=== PATIENT | female | born 1990 | race African-American/Black ===

== ENCOUNTER → 2017-07-18 | Outpatient (CLI) | payer OTHER ==
[~2017-07-18] VITALS: Ht 162.6 cm; Wt 145.6 kg
[2017-07-18 14:48] VITALS: BP 126/70; PULSE 80
== END ==
LOC: EDBD → LIGHT 09:07
DX: E66.01 Morbid (severe) obesity due to excess calories (principal); Z68.43 Body mass index [BMI] 50.0-59.9, adult; Z71.3 Dietary counseling and surveillance; R73.01 Impaired fasting glucose; E78.5 Hyperlipidemia, unspecified

== ENCOUNTER → 2018-02-12 | Outpatient (CLI) | payer OTHER ==
[~2018-02-12] VITALS: Ht 162.6 cm; Wt 149.5 kg
[2018-02-12 14:10] VITALS: BP 110/64; PULSE 68
== END ==
LOC: SUN.DIA 08-01 07:53 → LIGHT 08-01 13:09
DX: E66.01 Morbid (severe) obesity due to excess calories (principal); Z68.43 Body mass index [BMI] 50.0-59.9, adult; Z71.3 Dietary counseling and surveillance; R73.01 Impaired fasting glucose; E78.5 Hyperlipidemia, unspecified
CPT/HCPCS: G0463

== ENCOUNTER 2018-03-14 09:23 | Inpatient (IN) | payer OTHER ==
[~2018-03-14] VITALS: Ht 165.1 cm; Wt 149.8 kg
[2018-03-28] VITALS (12 sets, daily range): BP systolic 134–156; BP diastolic 74–88; PULSE 80–100; TEMP 97.6–98.5
[2018-03-29] VITALS (7 sets, daily range): BP systolic 121–153; BP diastolic 65–80; PULSE 52–71; TEMP 97.6–98.6
[2018-03-30 04:29] VITALS: BP 135/63; PULSE 62; TEMP 97.8
[2018-03-30 08:41] VITALS: BP 134/68; PULSE 63; TEMP 98
[2018-03-30 12:08] VITALS: BP 135/70; PULSE 72; TEMP 98.4
== END 2018-03-30 13:35 | disposition home or self-care (01) | DRG 621 ==
LOC: INPTSU 03-28 06:54 → SURG 03-28 06:54
PROVIDERS: Surgery
PROC: 0DB64Z3 Excision of Stomach, Percutaneous Endoscopic Approach, Vertical (ICD-10-PCS; principal; 2018-03-28 09:30)
DX: E66.01 Morbid (severe) obesity due to excess calories (principal); Z68.43 Body mass index [BMI] 50.0-59.9, adult
CPT/HCPCS: A9284; J0330; J0360; J0690; J1100; J1170; J1650; J1885; J2405; J2704; J2710; J3010; J7120

== ENCOUNTER → 2018-03-19 | Outpatient (CLI) | payer OTHER | LOC: LIGHT 12:51 | DX: Z01.818 Encounter for other preprocedural examination (principal) ==

== ENCOUNTER 2018-04-07 14:05 | Observation (INO) | payer OTHER ==
[~2018-04-07] VITALS: Ht 165.1 cm; Wt 143.3 kg
[2018-04-07] MEDS ORDERED: ZOFRAN 4MG T4 MG/TAB PO (14:27)
[2018-04-07] MEDS ORDERED: PROTONIX 40MG T40 MG PO (14:28)
[2018-04-07] MEDS ORDERED: LEVAQUIN 5500 MG/TA1 PO (14:31)
[2018-04-07] MEDS ORDERED: NORCO 325 MG-7.1 TAB PO (14:32)
[2018-04-07 15:12] LABS: BASO % 0.3 % (0.0-2.0); EOS # 0.1 (0.0-0.7); EOS % 1.1 % (0-4.0); GRAN # 9.7 (1.4-6.5); GRAN % 75.9 % (42.2-75.2); HEMOGLOBIN 10.1 g/dl (12.5-16.0); LYMPH # 1.9 (1.2-3.4); LYMPH % 14.6 % (20.0-51.0); MEAN CELL VOLUME 68 fl (80.0-100.0); MEAN CORPUSCULAR HEMOGLOBIN 21 pg (27.0-31.0); MEAN CORPUSCULAR HGB CONC 31 g/dl (33.0-37.0); MEAN PLATELET VOLUME 9.8 fl (7.4-10.4); MONO % 7.7 % (1.7-9.3); PLATELET COUNT 563 K/mm3 (130-400); RED BLOOD COUNT 4.85 M/mm3 (4.10-5.30); REDCELL DISTRIBUTION WIDTH-CV 19.9 % (11.5-14.5)
[2018-04-07 15:15] LABS: HEMATOCRIT 33.1 % (37.0-47.0)
[2018-04-07 15:24] LABS: ALBUMIN 3.9 gm/dL (3.5-5.0); BILIRUBIN,TOTAL 0.5 mg/dL (0.0-1.0); C-REACTIVE PROTEIN 3.7 mg/dL (0.0-0.9); CALCIUM 9.4 mg/dL (8.4-10.2); CREATININE, serum 0.71 mg/dL (0.52-1.25); POTASSIUM 3.5 mmol/L (3.4-5.0); TOTAL PROTEIN 8.9 gm/dL (6.4-8.2)
[2018-04-07 15:44] LABS: COLLECTION METHOD CLEAN CATCH
[2018-04-07 15:55] LABS: MUCOUS Present /lpf; PH 5 (5-8); URINE APPEARANCE Cloudy; URINE BACTERIA None Seen /hpf; URINE BILIRUBIN Negative (NEGATIVE); URINE BLOOD Negative (NEGATIVE); URINE COLOR Yellow; URINE GLUCOSE Negative (NEGATIVE); URINE KETONE 2+ (NEGATIVE); URINE LEUKOCYTE ESTERASE 1+ (NEGATIVE); URINE NITRATE Negative (NEGATIVE); URINE PROTEIN(semi-quant) 1+ (NEGATIVE); URINE RBC 0-2 /hpf
[2018-04-07 19:55] VITALS: BP 143/72; PULSE 90; TEMP 97.8
[2018-04-07 23:25] VITALS: BP 128/70; PULSE 75; TEMP 98.4
[2018-04-08 03:22] VITALS: BP 120/72; PULSE 70; TEMP 98.1
[2018-04-08 07:45] VITALS: BP 128/69; PULSE 69; TEMP 98.5
[2018-04-08 08:00] LABS: BASO % 0.2 % (0.0-2.0); EOS # 0.2 (0.0-0.7); EOS % 1.5 % (0-4.0); GRAN # 7.1 (1.4-6.5); GRAN % 73.1 % (42.2-75.2); LYMPH # 1.7 (1.2-3.4); MEAN CELL VOLUME 69 fl (80.0-100.0); MEAN CORPUSCULAR HGB CONC 31 g/dl (33.0-37.0); MEAN PLATELET VOLUME 10.2 fl (7.4-10.4); MONO # 0.8 (0.1-0.6); MONO % 7.8 % (1.7-9.3); PLATELET COUNT 512 K/mm3 (130-400); RED BLOOD COUNT 4.39 M/mm3 (4.10-5.30); REDCELL DISTRIBUTION WIDTH-CV 19.6 % (11.5-14.5)
[2018-04-08 08:06] LABS: HEMATOCRIT 30.2 % (37.0-47.0); HEMOGLOBIN 9.2 g/dl (12.5-16.0); MEAN CORPUSCULAR HEMOGLOBIN 21 pg (27.0-31.0)
[2018-04-08 08:11] LABS: CALCIUM 8.9 mg/dL (8.4-10.2); CREATININE, serum 0.73 mg/dL (0.52-1.25); MAGNESIUM 1.6 mg/dL (1.6-2.3); PHOSPHOROUS 3.9 mg/dL (2.5-4.5); POTASSIUM 3.4 mmol/L (3.4-5.0)
== END 2018-04-08 11:13 | disposition home or self-care (01) ==
LOC: COL.ER 14:05 → SURG 17:42
PROVIDERS: Emergency Medicine; Surgery
DX: K91.0 Vomiting following gastrointestinal surgery (principal); Z98.84 Bariatric surgery status; E66.01 Morbid (severe) obesity due to excess calories
CPT/HCPCS: G0378; J1170; J2405; J2550; J2765; J7030; J7120; Q9967

== ENCOUNTER → 2018-04-09 | Outpatient (CLI) | payer OTHER ==
[~2018-04-09] VITALS: Ht 165.1 cm; Wt 140.2 kg
[~2018-04-09] MED LIST: LEVAQUIN 5500 MG/TA1 PO; NORCO 325 MG-7.1 TAB PO; PROTONIX 40MG T40 MG PO; ZOFRAN 4MG T4 MG/TAB PO
[2018-04-09 14:00] VITALS: BP 116/70; PULSE 72
== END ==
LOC: LIGHT 13:38
DX: E66.01 Morbid (severe) obesity due to excess calories (principal); Z68.43 Body mass index [BMI] 50.0-59.9, adult; Z71.3 Dietary counseling and surveillance; R73.01 Impaired fasting glucose; E78.5 Hyperlipidemia, unspecified

== ENCOUNTER → 2018-06-04 | Outpatient (CLI) | payer OTHER ==
[~2018-06-04] VITALS: Ht 165.1 cm; Wt 130.9 kg
[~2018-06-04] MED LIST changes: +ONE-A-DAY WOMEN1 TAB PO
[2018-06-04 16:01] VITALS: BP 130/82; PULSE 68
== END ==
LOC: LIGHT 05-21 13:55
DX: R73.01 Impaired fasting glucose (principal); E78.5 Hyperlipidemia, unspecified; E66.01 Morbid (severe) obesity due to excess calories; Z68.42 Body mass index [BMI] 45.0-49.9, adult; Z71.3 Dietary counseling and surveillance; Z98.84 Bariatric surgery status

== ENCOUNTER → 2018-07-02 | Outpatient (CLI) | payer OTHER ==
[~2018-07-02] VITALS: Ht 165.1 cm; Wt 128.6 kg
[~2018-07-02] MED LIST changes: +NATURE'S BLE1000 MCG PO
[2018-07-02 16:01] VITALS: BP 134/86; PULSE 84
== END ==
LOC: LIGHT 09:23
DX: R73.01 Impaired fasting glucose (principal); E78.5 Hyperlipidemia, unspecified; Z98.84 Bariatric surgery status; E66.01 Morbid (severe) obesity due to excess calories; Z68.42 Body mass index [BMI] 45.0-49.9, adult; Z71.3 Dietary counseling and surveillance
CPT/HCPCS: G0463

== ENCOUNTER 2018-12-15 14:39 | Observation (INO) | payer OTHER ==
[~2018-12-15] VITALS: Ht 165.1 cm; Wt 118.8 kg
[2018-12-15] MEDS ORDERED: B COMPLEX & B121 TAB (14:58)
[2018-12-15 16:17] LABS: BASO % 0.2 % (0.0-2.0); EOS # 0.1 (0.0-0.7); EOS % 0.4 % (0-4.0); GRAN # 9.1 (1.4-6.5); GRAN % 71.3 % (42.2-75.2); LYMPH # 2.5 (1.2-3.4); LYMPH % 19.2 % (20.0-51.0); MEAN CELL VOLUME 72 fl (80.0-100.0); MEAN CORPUSCULAR HGB CONC 30 g/dl (33.0-37.0); MEAN PLATELET VOLUME 11.2 fl (7.4-10.4); MONO # 1.1 (0.1-0.6); MONO % 8.5 % (1.7-9.3); PLATELET COUNT 364 K/mm3 (130-400); RED BLOOD COUNT 3.55 M/mm3 (4.10-5.30); REDCELL DISTRIBUTION WIDTH-CV 17.2 % (11.5-14.5)
[2018-12-15 16:32] LABS: HEMATOCRIT 25.7 % (37.0-47.0); HEMOGLOBIN 7.6 g/dl (12.5-16.0); MEAN CORPUSCULAR HEMOGLOBIN 21 pg (27.0-31.0)
[2018-12-15 16:57] LABS: TRICYCLIC ANTIDEPRESS URINE NEGATIVE
[2018-12-15] MEDS ORDERED: NORCO 325 MG-51 TAB PO (20:00)
[2018-12-15 20:11] VITALS: BP 148/85; PULSE 66; TEMP 98.5
--- NOTE | 2018-12-15 20:49 | NUR ---
PT ADMITTED WITH POST OP DRAINAGE FROM LEFT BREAST. SEE 5 PAGE ADMISSION ASSESSMENT.
[2018-12-15 23:30] VITALS: BP 124/64; PULSE 67; TEMP 98
[2018-12-15 23:37] LABS: HEMOGLOBIN 7.8 g/dl (12.5-16.0)
[2018-12-16 04:03] VITALS: BP 139/85; PULSE 74; TEMP 98.1
--- NOTE | 2018-12-16 06:48 | NUR ---
PT IN BED. NUMBERS PROVIDED FOR HER TO CONTACT [facility] REGARDING HAVING HER COME BACK FROM DEPLOYMENT. MECLIZINE ORDERED FOR DIZZINESS.
--- NOTE | 2018-12-16 08:00 | NUR ---
Patient resting in bed at this time. Patient is alert and oriented, answers questions appropriately. Patient states that her is in the and is deployed to [place]. States that she is attempting to send him a [employer] message. Upon communication with [employer] airport representative, they state they need diagnosis confirmation and admission status. Took contact number and case number, will pass information on to hospitalist. Patient states that she does have pain, but does not like to take the PRN pain medication that is ordered, as it makes her "woozy" and does not take away her pain; will inform hospitalist. Patient denies further needs at this time, call light within reach.
[2018-12-16 08:03] VITALS: BP 120/55; PULSE 74; TEMP 98.3
[2018-12-16 12:00] VITALS: BP 146/86; PULSE 82; TEMP 98.1
--- NOTE | 2018-12-16 12:34 | NUR ---
Patient lives at home in her apartment in [place], [place] typically with her (Dhaval Rosario) but he is deployed as he is an active soldier with the [employer] at [place] and the patient is a homemaker. Patient recently had breast reduction surgery and is being treated for a post operation infection. Patient is independent with daily living activities, her primary medical care and pharmacy are received by [facility], and she does not have advance directives at this time. Patient's family and local friends are supportive as needed and patient plans to discharge home upon recovery. support services coordinator will follow as needed.
[2018-12-16 13:19] LABS: BASO % 0.3 % (0.0-2.0); EOS # 0.1 (0.0-0.7); EOS % 1.1 % (0-4.0); GRAN # 7.7 (1.4-6.5); GRAN % 69.9 % (42.2-75.2); LYMPH # 2.2 (1.2-3.4); LYMPH % 19.8 % (20.0-51.0); MEAN CELL VOLUME 72 fl (80.0-100.0); MEAN CORPUSCULAR HGB CONC 30 g/dl (33.0-37.0); MEAN PLATELET VOLUME 10.6 fl (7.4-10.4); MONO # 0.9 (0.1-0.6); MONO % 8.4 % (1.7-9.3); PLATELET COUNT 386 K/mm3 (130-400); RED BLOOD COUNT 3.68 M/mm3 (4.10-5.30); REDCELL DISTRIBUTION WIDTH-CV 16.9 % (11.5-14.5)
[2018-12-16 13:23] LABS: HEMATOCRIT 26.3 % (37.0-47.0); HEMOGLOBIN 7.8 g/dl (12.5-16.0); MEAN CORPUSCULAR HEMOGLOBIN 21 pg (27.0-31.0)
[2018-12-16 13:40] LABS: CALCIUM 8.6 mg/dL (8.4-10.2); CREATININE, serum 0.79 mg/dL (0.52-1.25); POTASSIUM 3.4 mmol/L (3.4-5.0)
[2018-12-16 16:43] VITALS: BP 141/53; PULSE 85; TEMP 98.1
--- NOTE | 2018-12-16 18:44 | NUR ---
Patient resting in bed at this time. Patient remains alert and oriented, answers questions appropriately. Patient requested PRN pain medication once, administered per order, denies nausea or further needs, call light within reach.
[2018-12-16] MEDS ORDERED: FERROUS SU325 MG/TAB PO (20:09)
[2018-12-16 20:19] VITALS: BP 149/76; PULSE 75; TEMP 98.6
--- NOTE | 2018-12-16 21:00 | NUR ---
PT STATED SHE HAD A FRIEND DOWNSTAIRS TO TAKE HER HOME AND SHE MIGHT NOT HAVE A RIDE TOMORROW. HOSPITALIST ESTHELA NOTIFIED. PT GIVEN DISCHARGE INFO AND INSTRUCTIONS ON DIAGNOSIS. I.V. DISCONTINUED. DRESSINGS ON BILAT. BREAST INCISIONS CHANGED.
--- NOTE | 2018-12-16 21:15 | NUR ---
PT SEEN BY HOSPITALIST ESTHELA PRIOR TO DISCHARGE THIS EVENING.
--- NOTE | 2018-12-16 21:25 | NUR ---
ORDER TO DISCHARGE PT OBTAINED FROM HOSPITALIST/MACHINE HEDDLE CLEANER. PT GIVEN DISCHARGE INSTRUCTIONS AND SOME GAUZE TO CHANGE HER DRESSINGS. VERY LITTLE DRAINAGE NOTED WHEN DRESSINGS WERE CHANGED. PT ESCORTED TO HER FRIEND'S VEHICLE VIA WHEELCHAIR WITH HER BELONGINGS.
== END 2018-12-16 21:25 | disposition home or self-care (01) ==
LOC: COL.ER 14:39 → SURG 19:06
PROVIDERS: Nurse Practitioner; Nurse Practitioner Family; ADMIT Internal Medicine
DX: D64.9 Anemia, unspecified (principal); N64.89 Other specified disorders of breast; Z98.84 Bariatric surgery status; Z98.890 Other specified postprocedural states
CPT/HCPCS: G0378; J1885; Q9967

== ENCOUNTER → 2019-01-28 | Outpatient (CLI) | payer OTHER ==
[~2019-01-28] VITALS: Ht 165.1 cm; Wt 114.8 kg
[~2019-01-28] MED LIST changes: +B COMPLEX & B121 TAB; +FERROUS SU325 MG/TAB PO; +HARD NAILS 2.51 CAP PO; +NORCO 325 MG-51 TAB PO; +VITAMIN B11000 MCG/M IM
[2019-01-28 14:08] VITALS: BP 156/90; PULSE 56
== END ==
LOC: LIGHT
DX: R73.01 Impaired fasting glucose (principal); E78.5 Hyperlipidemia, unspecified; Z98.84 Bariatric surgery status; E66.01 Morbid (severe) obesity due to excess calories; Z68.41 Body mass index [BMI] 40.0-44.9, adult; Z71.3 Dietary counseling and surveillance
CPT/HCPCS: G0463

== ENCOUNTER → 2019-07-29 | Outpatient (CLI) | payer OTHER ==
[~2019-07-29] VITALS: Ht 165.1 cm; Wt 120.2 kg
[~2019-07-29] MED LIST changes: +MULTIPLE VITAMI1 CAP PO
[2019-07-29 15:44] VITALS: BP 128/72; PULSE 52
== END ==
LOC: LIGHT 07-01 13:22
DX: R73.01 Impaired fasting glucose (principal); E78.5 Hyperlipidemia, unspecified; Z98.84 Bariatric surgery status; E66.01 Morbid (severe) obesity due to excess calories; Z68.42 Body mass index [BMI] 45.0-49.9, adult; Z71.3 Dietary counseling and surveillance
CPT/HCPCS: G0463

== ENCOUNTER → 2019-08-29 | Outpatient (CLI) | payer OTHER ==
[~2019-08-29] VITALS: Ht 165.1 cm; Wt 120.9 kg
[~2019-08-29] MED LIST changes: +ADIPEX-P37.5 MG PO
[2019-08-29 13:50] VITALS: BP 126/92; PULSE 60
== END ==
LOC: LIGHT
DX: R73.01 Impaired fasting glucose (principal); E78.5 Hyperlipidemia, unspecified; Z98.84 Bariatric surgery status; E66.01 Morbid (severe) obesity due to excess calories; Z68.41 Body mass index [BMI] 40.0-44.9, adult; Z71.3 Dietary counseling and surveillance
CPT/HCPCS: G0463